=== PATIENT | female | born 1975 | race Caucasian/White ===

== ENCOUNTER 2022-07-15 09:34 | Outpatient (CLI) | payer OTHER, SELFPAY ==
--- NOTE | ~2022-07-15 | MR_ITS ---
EXAMINATION: MR cervical spine wo con DATE: 07/15/2022 11:06 INDICATION: 6 months of neck pain TECHNIQUE: Magnetic resonance imaging (MRI) of the cervical spine was performed without intravenous c ontrast. Sequences included sagittal T2-weighted FSE, sagittal T2-weighted FS FSE, sagittal T1-weight ed FSE, axial MERGE and axial T2-weighted FSE. COMPARISON: None FINDINGS: Straightening of the normal cervical lordosis. Vertebral body heights are normal. Bone marrow signa l intensity is normal. Moderate to severe disc height loss with degenerative endplate osteophytes at C6-C7. Mild disc height loss at C3-C4. Cord signal intensity is normal. Cervical soft tissues are unr emarkable. The following disc levels are specifically discussed: C2-C3: The disc does not extend beyond the endplate margin. There is no uncovertebral joint osteoarth ritis. There is mild bilateral facet joint osteoarthritis. There is no neural foraminal stenosis. The re is no central canal stenosis. C3-C4: Negligible disc bulge. There is mild left uncovertebral joint osteoarthritis. There is minimal right and mild left facet joint osteoarthritis. There is minimal left neural foraminal stenosis. The re is no central canal stenosis. C4-C5: The disc does not extend beyond the endplate margin. There is no uncovertebral joint osteoarth ritis. There is minimal bilateral facet joint osteoarthritis. There is no neural foraminal stenosis. There is no central canal stenosis. C5-C6: The disc does not extend beyond the endplate margin. There is mild right uncovertebral joint o steoarthritis. There is minimal left and no right facet joint osteoarthritis. There is no neural fora alli stenosis. There is no central canal stenosis. C6-C7: Posterior disc ossified complexes with annular fissure and small left central to foraminal zon e disc extrusion with disc material extending up to 4 mm caudal to the level of the superior endplate of C7 at the level of the lateral recess. There is moderate right and severe left uncovertebral join t osteoarthritis. There is mild bilateral facet joint osteoarthritis. There is mild right and moderat e left neural foraminal stenosis. There is mild to moderate central canal stenosis measuring 9 mm AP in the mid sagittal plane. C7-T1: Small central disc protrusion. There is no uncovertebral joint osteoarthritis. There is mild b ilateral facet joint osteoarthritis. There is no neural foraminal stenosis. There is mild central can al stenosis. IMPRESSION: 1. Moderate to severe spondylosis at C6-C7. Otherwise mild cervical spondylosis. Reviewed, dictated and finalized at location A. SCALER IMPRESSION: 1. Moderate to severe spondylosis at C6-C7. Otherwise mild cervical spondylosis .
== END 2022-07-15 09:35 | disposition home or self-care (01) ==
LOC: CHSIMG 09:39
PROVIDERS: PCP Physician Assistant; Visit Provider Physician Assistant
DX: M54.2 Cervicalgia (principal)
CPT/HCPCS: 72141

== ENCOUNTER 2023-09-19 10:32 | Outpatient (CLI) | payer OTHER, SELFPAY ==
--- NOTE | ~2023-09-19 | XR_ITS ---
Cervical Spine: AP, lateral, open-mouth views Clinical History: Pain COMPARISON: 06/26/2022 Findings: The normal lordotic curve is maintained. The vertebral bodies and posterior elements appea r intact. Moderate degenerative disc change noted at C6-C7. Pre-vertebral soft tissues are unremarkab le. Impression: No acute abnormality. No change from prior exam. Degenerative disc changes C6-C7. Reviewed, dictated and finalized at location . ER ELECTRONIC SCALE Impression: No acute abnormality. No change from prior exam. Degenerative disc changes C6-C7.
--- NOTE | ~2023-09-19 | XR_ITS ---
Left Shoulder Technique: AP and scapular Y views were obtained. Clinical History: Pain Findings: No fracture or dislocation is seen. Osseous alignment is anatomic. The glenohumeral and acr omioclavicular joint spaces are preserved. Soft tissues are unremarkable. Impression: Unremarkable left shoulder radiographs. Reviewed, dictated and finalized at [facility]. LE COORDINATOR Impression: Unremarkable left shoulder radiographs.
== END 2023-09-19 10:33 | disposition home or self-care (01) ==
LOC: CHSIMG 10:34
PROVIDERS: PCP Family Medicine; Visit Provider Registered Nurse
DX: M25.512 Pain in left shoulder (principal); M54.2 Cervicalgia
CPT/HCPCS: 72040; 73030

== ENCOUNTER 2023-09-20 08:18 | Outpatient (RCR) | payer OTHER, SELFPAY ==
--- NOTE | 2023-09-20 09:25 | OPREHPOC ---
Outpatient Therapy Plan of Care This is a Multidisciplinary Plan of Care that may contain components documented by all disciplines (PT, OT, and ST.) PT Problem 1 PT Problem #1 Knowledge Deficit PT Goal 1 Goal The patient will be independent in a home exercise program to continue after discharge from formal PT. Target Visit 10 PT Problem 2 PT Problem #2 Pain PT Goal 1 Goal The patient will report no greater than 2/10 left shoulder pain with daily activities. Target Visit 10 PT Problem 3 PT Problem #3 Impaired Range of Motion PT Goal 1 Goal The patient will improve left shoulder abduction AROM to 140 degrees to improve overhead reaching ability. The patient will improve left shoulder external rotation to 70 degrees to improve ability to reach her seat belt. Target Visit 10 PT Problem 4 PT Problem #4 Impaired Strength PT Goal 1 Goal The patient will demonstrate at least 4/5 left shoulder strength in all major muscle groups to improve ability to lift and carry. Target Visit 10 PT Problem 5 PT Problem #5 Impaired Functional Mobil PT Goal 1 Goal The patient will demonstrate less than 25% self perceived disability per the Quick DASH questionnaire. Target Visit 10
--- NOTE | 2023-09-20 09:25 | PTOPEVAL1 ---
Assessment and note entered by Jigna Baum, PT Evaluation Information Assessment Status Evaluation Diagnosis L shoulder pain Subjective Information Robyn Mcleod reports she had a gradual onset of left shoulder that started about a year ago. She did not have a specific injury and feels it may be wear and tear. She reports her pain gradually worsened so she went to the doctor. She had x-rays that were normal and was referred to PT . She notes pain in the upper arm and she can not reach behind her back to scratch/wash, reach for the seat belt, or push up with the left arm from an arm rest. Reported Pain Level Pain Score 3: Self Report Assessment PT Clinical Summary Robyn Mcleod presents with left shoulder pain with an insidious onset that has gradually worsened over the last year. She has difficulty reaching behind her back, reaching for her seat belt, and pushing up from sitting with the left arm. She objectively demonstrates decreased and painful left shoulder AROM, decreased left shoulder strength, poor posture, and positive special tests consistent with shoulder impingement and tendonopathy. She will benefit from skilled PT to address these limitations and improve functional abilities. Plan of Care Interventions Electrical Stimulation,Hot Pack/Cold Pack,Manual Therapy,Patient/Caregiver Educati,Therapeutic Activities,Therapeutic Exercise PT Services Indicated Yes Treatment Frequency and 2 times a week for 10 visits Duration These treatments will address the objective and functional deficits as defined above. The patient will be advanced safely and appropriately in order for the patient to progress towards his/her prior level of function. Additional exercises will be introduced and as well as a comprehensive home exercise program upon discharge, if needed, ?to ensure carryover of functional gains achieved in the clinic. This treatment plan has been reviewed and agreement upon by the patient.
--- NOTE | 2023-10-20 08:47 | OPREHPOC ---
Outpatient Therapy Plan of Care This is a Multidisciplinary Plan of Care that may contain components documented by all disciplines (PT, OT, and ST.) PT Problem 1 PT Problem #1 Knowledge Deficit PT Goal 1 Goal The patient will be independent in a home exercise program to continue after discharge from formal PT. Target Visit 10 Progress Met PT Problem 2 PT Problem #2 Pain PT Goal 1 Goal The patient will report no greater than 2/10 left shoulder pain with daily activities. Target Visit 10 Progress Not Met PT Problem 3 PT Problem #3 Impaired Range of Motion PT Goal 1 Goal The patient will improve left shoulder abduction AROM to 140 degrees to improve overhead reaching ability. -met The patient will improve left shoulder external rotation to 70 degrees to improve ability to reach her seat belt. -not met Target Visit 10 Progress Partially Met PT Problem 4 PT Problem #4 Impaired Strength PT Goal 1 Goal The patient will demonstrate at least 4/5 left shoulder strength in all major muscle groups to improve ability to lift and carry. Target Visit 10 Progress Partially Met PT Problem 5 PT Problem #5 Impaired Functional Mobil PT Goal 1 Goal The patient will demonstrate less than 25% self perceived disability per the Quick DASH questionnaire. Target Visit 10 Progress Not Met
--- NOTE | 2023-10-20 08:47 | PTOPDC ---
Assessment and note entered by Jigna Baum, PT Evaluation Information Assessment Status Discharge Diagnosis L Shoulder Pain Subjective Information Robyn Mcleod reports her left shoulder feels about the same. She continues to have difficulty reaching behind her back to don/doff a bra as well as to hold her puppy in the back seat of her vehicle. She has difficulty with reaching for her seatbelt as well. She notes tenderness in the front of the shoulder and chest. She reports she will have a MRI on 10/22/23. She has had a resolution in the vertigo symptoms she was experiencing for 2 weeks. Reported Pain Level Pain Score 1: Self Report Assessment PT Clinical Summary Robyn Mcleod has completed 10 skilled PT visits for left shoulder pain. She is reporting no overall change in her symptoms since initiating PT. She still has difficulty reaching behind her back, reaching for her seatbelt, and restraining her puppy. She objectively demonstrates improved left shoulder AROM and strength since initiating PT. She does still have deficits and pain with left shoulder abduction and external rotation AROM , decreased left shoulder strength, and positive special tests consistent with rotator cuff pathology. She will be discharged from skilled PT and has a MRI scheduled 10/22/23. Plan of Care PT Services Indicated No
== END 2023-10-20 15:15 | disposition home or self-care (01) ==
LOC: CHSPT 08:18
PROVIDERS: PCP Family Medicine; Visit Provider Registered Nurse
DX: M25.512 Pain in left shoulder (principal)
CPT/HCPCS: 97014; 97110; 97112; 97161; G0283

== ENCOUNTER 2023-10-07 08:49 | Outpatient (CLI) | payer OTHER, SELFPAY ==
--- NOTE | ~2023-10-07 | MMUS_ITS ---
EXAMINATION: MM diagnostic ellie BI w collin, US breast BI complete HISTORY: Palpable bilateral breast masses. History of neurofibromatosis. TECHNIQUE: Additional 3-D tomosynthesis images of breasts were performed and synthetic 2-D images wer e generated. CAD analysis was submitted and interpreted. High resolution complete bilateral breast ul trasound was performed. COMPARISON: No prior studies for comparison. BREAST PARENCHYMAL COMPOSITION: Not dense: There are scattered areas of fibroglandular density. FINDINGS: MAMMOGRAPHIC FINDINGS: There are multiple skin lesions in the left breast. There are no suspicious calcifications or archite ctural distortion. ULTRASOUND: Complete bilateral US of all 4 quadrants of the breasts and retroareolar region was reviewed. Right breast: In the subcutaneous tissues of the right breast near the nipple there is a 9 mm cyst. A t 10:00, 7 cm from the nipple, there is a 8 mm cyst. Left breast: In the subcutaneous tissues of the left breast at 12:00, 3 cm from the nipple there is a n 11 mm cyst. At 1:00, 7 cm from the nipple there is a 2.1 cm cyst. At 1:00, 7 cm from the nipple the re is a solid appearing shadowing 7 mm hypoechoic mass without internal vascularity. This corresponds to the area of palpable concern. At 9:00, 5 cm from the nipple there is a 5 mm cyst.. IMPRESSION: 1. Solid shadowing left breast mass at 1:00, 7 cm from the nipple measuring 7 mm. 2. Ultrasound-guided biopsy recommended. BI-RADS category 4, suspicious findings. Reviewed, dictated and finalized at location A. R GANG SUPERVISOR IMPRESSION: 1. Solid shadowing left breast mass at 1:00, 7 cm from the nipple measuring 7 m m. 2. Ultrasound-guided biopsy recommended. BI-RADS category 4, suspicious findings.
== END 2023-10-07 08:50 | disposition home or self-care (01) ==
LOC: CHSIMG 08:52
PROVIDERS: PCP Family Medicine; Visit Provider Registered Nurse
DX: N63.21 Unspecified lump in the left breast, upper outer quadrant (principal); R92.8 Other abnormal and inconclusive findings on diagnostic imaging of breast
CPT/HCPCS: 76641; 77062; 77066; G0279

== ENCOUNTER 2023-10-22 06:54 | Outpatient (CLI) | payer OTHER, SELFPAY ==
--- NOTE | ~2023-10-22 | MR_ITS ---
EXAMINATION: MR shoulder LT wo con DATE: 10/22/2023 11:16 INDICATION: neck pain/neurofibromatosis/Lt. shoulder pain . TECHNIQUE: Magnetic resonance imaging (MRI) of the left shoulder was performed without intravenous co ntrast. Sequences included axial PD-weighted FS FSE, coronal oblique PD-weighted FS FSE and T2-weight ed FS FSE, and sagittal oblique T2-weighted FS FSE and T1-weighted FSE. COMPARISON: X-ray left shoulder 09/19/2023 FINDINGS: Coracoacromial arch: Moderate lateral downsloping of the type I acromion. Subacromial narrowing to 4 mm. No subcoracoid na rrowing. Rotator cuff: 2 mm partial-thickness articular sided defect in the anterior portion of the supraspinatus tendon isacc r its insertion. Thinning of the superior cuff. Mild abnormal hyperintensity in the musculotendinous junction of the supraspinatus and infraspinatus. Teres minor and subscapularis are intact. Biceps tendon and glenoid labrum: Glenoid labrum and long head of biceps tendon are intact. Fluid: Minimal subacromial subdeltoid fluid. Mild volume glenohumeral joint effusion. Bones/cartilage: The marrow signal is benign and homogenous. Mild AC joint hypertrophy. Mild glenohumeral joint narrow ing. Soft tissues: 9 x 19 mm fluid intensity ovoid lesion in the lateral aspect of the quadrilateral space. IMPRESSION: Moderate osseous outlet compromise, with mild tendinopathy of the superior cuff, mild subacromial/sub deltoid bursitis, and a 2 mm articular sided partial surface tear at the insertion of the supraspinat us tendon. Mild polyarticular osteoarthritis. 9 x 19 mm quadrilateral space cyst may represent a ganglion cyst. No MR findings suggestive of zurdo lateral space syndrome. Correlate for clinical findings of lateral arm paresthesia. Reviewed, dictated and finalized at location K. IMPRESSION: Moderate osseous outlet compromise, with mild tendinopathy of the superior cuff , mild subacromial/subdeltoid bursitis, and a 2 mm articular sided partial surf lolly tear at the insertion of the supraspinatus tendon. Mild polyarticular osteoarthritis. 9 x 19 mm quadrilateral space cyst may represent a ganglion cyst. No MR finding s suggestive of quadrilateral space syndrome. Correlate for clinical findings o f lateral arm paresthesia.
--- NOTE | ~2023-10-22 | MR_ITS ---
MRI of the brain Clinical History: Neck pain, neurofibromatosis Technique: Axial and sagittal T1-weighted images were acquired. These were followed by axial T2-weigh jean pierre, diffusion weighted, gradient, and FLAIR images. Findings: There are minimal hyperintense foci in the periventricular white matter and FLAIR imaging. No acute infarct, intracranial hemorrhage, or mass lesion identified. Ventricles and subarachnoid spaces are unremarkable. Orbits are unremarkable. Paranasal sinuses and m astoid air cells are clear. Major intracranial flow voids are intact. Sagittal midline structures are intact. Probable subtle poorly delineated scalp masses, especially taylor periorly. IMPRESSION: No significant intracranial abnormality. Suspected minimal chronic microvascular ischemic change. Several small scalp masses, poorly delineated. Reviewed, dictated and finalized at location M. IMPRESSION: No significant intracranial abnormality. Suspected minimal chronic microvascula r ischemic change. Several small scalp masses, poorly delineated.
--- NOTE | ~2023-10-22 | MR_ITS ---
EXAMINATION: MR cervical spine wo con DATE: 10/22/2023 11:15 INDICATION: Neurofibromatosis. Neck pain and left shoulder pain. TECHNIQUE: Magnetic resonance imaging (MRI) of the cervical spine was performed without intravenous c ontrast. Sequences included sagittal T2-weighted FSE, sagittal T2-weighted FS FSE, sagittal T1-weight ed FSE, axial MERGE and axial T2-weighted FSE. COMPARISON: MRI dated 07/15/2022 and radiograph dated 09/19/2023 FINDINGS: 1 mm retrolisthesis C6 on C7. Vertebral body heights are normal. Bone marrow signal intensity is nor mal. Moderate to severe disc height loss with degenerative endplate changes at C6-C7. Mild disc heigh t loss at C3-C4. Cord signal intensity is normal. There are several subcentimeter subcutaneous nodule s most evident posterior to the neck which would be consistent with the provided history of neurofibr omatosis. The following disc levels are specifically discussed: C2-C3: The disc does not extend beyond the endplate margin. There is no uncovertebral joint osteoarth ritis. There is mild bilateral facet joint osteoarthritis. There is no neural foraminal stenosis. The re is no central canal stenosis. C3-C4: Disc is minimally bulging. There is mild left uncovertebral joint osteoarthritis. There is mil d right and moderate left facet joint osteoarthritis. There is altered left neural foraminal stenosis . There is no central canal stenosis. C4-C5: Disc is minimally bulging. There is no uncovertebral joint osteoarthritis. There is minimal bi lateral facet joint osteoarthritis. There is no neural foraminal stenosis. There is no central canal stenosis. C5-C6: The disc does not extend beyond the endplate margin. There is no uncovertebral joint osteoarth ritis. There is minimal left and minimal right facet joint osteoarthritis. There is no neural foramin al stenosis. There is no central canal stenosis. C6-C7: Unchanged posterior disc osteophyte complex with annular fissure and small left paracentral to left foraminal zone disc extrusion with disc material extending up to 4 mm caudal to the level of th e superior endplate of C7.. There is moderate right and severe left uncovertebral joint osteoarthriti s. There is mild bilateral facet joint osteoarthritis. There is mild right and moderate left neural f oraminal stenosis. There is mild to moderate central canal stenosis which continues to measure 9 mm A P in the mid sagittal plane. C7-T1: Small central disc protrusion. There is no uncovertebral joint osteoarthritis. There is mild b ilateral facet joint osteoarthritis. There is no neural foraminal stenosis. There is mild central can al stenosis. IMPRESSION: 1. No significant change in moderate to severe spondylosis at C6-C7 and otherwise mild cervical spond ylosis. Reviewed, dictated and finalized at location A. IMPRESSION: 1. No significant change in moderate to severe spondylosis at C6-C7 and otherwi se mild cervical spondylosis.
== END 2023-10-22 06:55 | disposition home or self-care (01) ==
PROVIDERS: PCP Family Medicine; Visit Provider Registered Nurse
DX: M54.2 Cervicalgia (principal); M43.02 Spondylolysis, cervical region; R22.0 Localized swelling, mass and lump, head; M75.52 Bursitis of left shoulder; S46.812A Strain of other muscles, fascia and tendons at shoulder and upper arm level, left arm, initial encounter; M19.012 Primary osteoarthritis, left shoulder; M25.812 Other specified joint disorders, left shoulder
CPT/HCPCS: 70551; 72141; 73221

== ENCOUNTER 2023-11-08 08:02 | Outpatient (CLI) | payer OTHER, SELFPAY ==
--- NOTE | ~2023-11-08 | MMUS_ITS ---
US breast biopsy LT w image, MM post biopsy diagnostic LT, US breast cyst asp add LT DATE: 11/08/2023 10:05 (accession [id number]), 11/08/2023 15:20 (accession [id number]), 11/07 10:10 (accession [id number]) INDICATION: Solid shadowing left breast mass at 1:00 7 cm from nipple. 2.1 cm cyst at 1:00 7 cm from nipple TECHNIQUE: The bursal procedure, technique and potential complications were discussed with the tana t. The patient voiced understanding and gave oral and written consent. Timeout procedure was performe d. The skin of the left breast was prepared with sterile solution. Sterile drapes were applied. 1% lidoc luis local anesthetic was administered to the skin and underlying subcutaneous tissues. 1% lidocaine with epinephrine was administered to the deeper subcutaneous tissues. A small skin incision was made. A 12-gauge biopsy needle was introduced from a lateral approach into the shadowing lesion at 1:00 7 cm from the nipple with ultrasound guidance and 3 core biopsies were o btained. The lesion collapsed with introduction of the needle, consistent with cystic lesion. An 18-gauge spinal needle was introduced into the 2.1 cm 1:00 cyst and fluid was aspirated. The cyst was completely evacuated. Postbiopsy diagnostic mammogram reveals a biopsy marker in the upper outer quadrant of the left breas t. COMPARISON: 10/07/2023 diagnostic mammogram and complete breast ultrasound IMPRESSION: Ultrasound-guided biopsy of left breast 1:00 lesion 7 cm from nipple Ultrasound guided evacuation of left breast 1:00 cyst Pathology results pending on the left breast 1:00 shadowing lesion Reviewed, dictated and finalized at Location [facility]. Reviewed, dictated and finalized at location B. IMPRESSION: Ultrasound-guided biopsy of left breast 1:00 lesion 7 cm from nippl e Ultrasound guided evacuation of left breast 1:00 cyst Pathology results pending on the left breast 1:00 shadowing lesion IMPRESSION: Ultrasound-guided biopsy of left breast 1:00 lesion 7 cm from nippl e Ultrasound guided evacuation of left breast 1:00 cyst Pathology results pending on the left breast 1:00 shadowing lesion
== END 2023-11-08 08:03 | disposition home or self-care (01) ==
LOC: CHSIMG 08:03
PROVIDERS: PCP Family Medicine; Visit Provider Registered Nurse
DX: N63.21 Unspecified lump in the left breast, upper outer quadrant (principal)
CPT/HCPCS: 19000; 19001; 19083; 77065; 88112; 88173; 88305

== ENCOUNTER 2023-11-15 07:58 | Outpatient (RCR) | payer OTHER, SELFPAY ==
--- NOTE | 2023-11-08 12:02 | PCPTNOTE ---
11/08/23: Pt cancelled today's appointment due to having a biopsy this am. Her initial note had been started prior to her arrival. -Jigna Baum, PT
[2023-11-15 07:05] VITALS: BP_SYST 160
--- NOTE | 2023-11-15 08:15 | OPREHPOC ---
Outpatient Therapy Plan of Care This is a Multidisciplinary Plan of Care that may contain components documented by all disciplines (PT, OT, and ST.) PT Problem 1 PT Problem #1 Knowledge Deficit PT Goal 1 Goal Patient to demonstrate independence with HEP Target Visit 5 PT Problem 2 PT Problem #2 Pain PT Goal 1 Goal 1. Patient to report highest pain at 2/10 2. Patient to report no pain when waking up Target Visit 10 PT Problem 3 PT Problem #3 Impaired Range of Motion PT Goal 1 Goal 1. Patient to improve L shoulder flexion and abduction to 170 deg to return to house hold tasks 2. Patient to improve IR to reach to bra line with no increase in pain for dressing Target Visit 10 PT Problem 4 PT Problem #4 Impaired Strength PT Goal 1 Goal Patient to demonstrate 4+/5 B UE strength to return to lifting objects to complete house hold tasks Target Visit 10 PT Problem 5 PT Problem #5 Impaired Functional Mobil PT Goal 1 Goal 1. Patient to score <10% disability on QuickDash 2. Patient to report ability to put her seat belt on with no increased L shoulder pain Target Visit 10
--- NOTE | 2023-11-15 08:15 | PTOPEVAL1 ---
Assessment and note entered by Pat Rankin DPT Evaluation Information Assessment Status Evaluation Diagnosis L shoulder pain, thoracic outlet syndrome Onset 11/01/23 Subjective Information Patient reports a few years ago pain started into her L shoulder but pain has increased over the last few months. She attended PT in September of 2023 with good improvements. She reports she has now seen a specialist with new x-rays that show signs of thoracic outlet syndrome. She reports occasionally if she does something extreme she will get pain that shoots down her arm. She denies any numbness in her hand. She reports most pain is with reaching behind her back, putting on her seat belt and waking up in the morning are all highest sources of pain. She reports she is on STD currently. RTMD on on 12/02/23. Reported Pain Level Pain Score 1: Self Report Assessment PT Clinical Summary Ms. Mcleod is a 48 year old female who presents to PT with L shoulder pain. She demonstrates decreased L shoulder strength, decreased L shoulder ROM, decreased L GHJ hypomobility and hypomobility of the L 1st rib impairing her ability to reach behind her back, putting on her seat belt and highest pain when waking up in the morning. She would benefit from skilled PT to address impairments and return to PLOF. Plan of Care Interventions Electrical Stimulation,Hot Pack/Cold Pack,Manual Therapy,Mechanical Traction,Neuro Re-education, Patient/Caregiver Educati,Therapeutic Activities, Therapeutic Exercise PT Services Indicated Yes Treatment Frequency and 2x weekly for 10 visits Duration These treatments will address the objective and functional deficits as defined above. The patient will be advanced safely and appropriately in order for the patient to progress towards his/her prior level of function. Additional exercises will be introduced and as well as a comprehensive home exercise program upon discharge, if needed, ?to ensure carryover of functional gains achieved in the clinic. This treatment plan has been reviewed and agreement upon by the patient.
--- NOTE | 2023-12-15 07:43 | OPREHPOC ---
Outpatient Therapy Plan of Care This is a Multidisciplinary Plan of Care that may contain components documented by all disciplines (PT, OT, and ST.) PT Problem 1 PT Problem #1 Knowledge Deficit PT Goal 1 Goal Patient to demonstrate independence with HEP Target Visit 5 Progress Met PT Problem 2 PT Problem #2 Pain PT Goal 1 Goal 1. Patient to report highest pain at 2/10 2. Patient to report no pain when waking up Target Visit 10 Progress Met PT Problem 3 PT Problem #3 Impaired Range of Motion PT Goal 1 Goal 1. Patient to improve L shoulder flexion and abduction to 170 deg to return to house hold tasks . met 2. Patient to improve IR to reach to bra line with no increase in pain for dressing. met Target Visit 10 Progress Partially Met PT Problem 4 PT Problem #4 Impaired Strength PT Goal 1 Goal Patient to demonstrate 4+/5 B UE strength to return to lifting objects to complete house hold tasks Target Visit 10 Progress Partially Met PT Problem 5 PT Problem #5 Impaired Functional Mobil PT Goal 1 Goal 1. Patient to score <10% disability on QuickDash 2. Patient to report ability to put her seat belt on with no increased L shoulder pain Target Visit 10 Progress Met
--- NOTE | 2023-12-15 07:44 | PTOPDC ---
Assessment and note entered by JT File, PT Evaluation Information Assessment Status Discharge Diagnosis L shoulder pain, thoracic outlet syndrome Onset 11/01/23 Subjective Information patient reports she feels Good today. she reports she has no pain. she reports her pain has barely reached a 1/10 this past week at worst. she reports she is able to reach behind her back and run her hand. she reports she has been compliant with her HEP. she reports she has no functional limitations. she reports she is ready to be done with therapy today. she reports she knows all her exercises, and has bands and weights to use at home. Reported Pain Level Pain Score 0: Self Report Assessment PT Clinical Summary mrs. wong presents to skilled PT services for her 10th skilled PT visit. as of this date, she displays improvements in rom, strength, and functional activity performance. she reports 0% functional deficits per the quick DASH. she has met or partially met all goals for skilled PT. she will DC skilled PT today, and continue with HEP independent at home. Plan of Care PT Services Indicated Yes
== END 2023-12-15 08:26 | disposition home or self-care (01) ==
LOC: CHSPT 07:58
DX: S46.002D Unspecified injury of muscle(s) and tendon(s) of the rotator cuff of left shoulder, subsequent encounter (principal)
CPT/HCPCS: 97110; 97140; 97161; 97530

== ENCOUNTER 2024-01-23 06:48 | Outpatient (CLI) | payer OTHER, SELFPAY ==
--- NOTE | ~2024-01-23 | XR_ITS ---
XR chest 2V Ordering provider: Ortiz Salazar, History: 49 years Female with . SHORTNESS OF BREATH UPON EXERTION . Comparison: 03/21/2008 FINDINGS: MEDIASTINUM: The cardiac silhouette is not enlarged. LUNGS: No infiltrates, effusions or pneumothorax. OTHER: No free air under the diaphragm. IMPRESSION: No acute cardiopulmonary pathology. Reviewed, dictated and finalized at location A.
--- NOTE | 2024-01-23 07:17 | ECG_ITS ---
Test Date: 2024-01-23 07:32:26 Measurements Intervals Alva Rate: 76 P: 57 WY: 133 QRS: 55 QRSD: 89 T: 55 QT: 343 QTc: 387 Interpretive Statements SINUS RHYTHM No previous ECG available for comparison Electronically Signed On 01-24-2024 11:38:10 CDT by Max Veloz M.D.
== END 2024-01-23 06:49 | disposition home or self-care (01) ==
LOC: CHSIMG 06:50
PROVIDERS: PCP Family Medicine; Visit Provider Nurse Practitioner
DX: R06.02 Shortness of breath (principal)
CPT/HCPCS: 71046; 93005

== ENCOUNTER 2025-06-05 10:19 | Outpatient (CLI) | payer MEDICAID, OTHER, SELFPAY ==
--- NOTE | ~2025-06-05 | US_ITS ---
l LIMITED ABDOMINAL ULTRASOUND INDICATION: Elevated LFTs COMPARISON: None. FINDINGS: Liver: The contours appear to be subtly lobulated. There is normal directional flow in the portal vein. Common bile duct: Normal in size. Gallbladder: The gallbladder wall is normal in thickness. No stones or sludge were seen. Guerra's sign: Negative Right kidney: Right kidney appears normal on the images provided. Imaged portions of the pancreas appear normal. IMPRESSION: Subtle nodular contour of the liver, suspicious for cirrhosis. Reviewed, dictated and finalized at location A.
== END 2025-06-05 10:20 | disposition home or self-care (01) ==
PROVIDERS: PCP Family Medicine; Visit Provider Registered Nurse
DX: R79.89 Other specified abnormal findings of blood chemistry (principal); R93.2 Abnormal findings on diagnostic imaging of liver and biliary tract
CPT/HCPCS: 76705

== ENCOUNTER 2025-06-10 12:33 | Outpatient (CLI) | payer OTHER, SELFPAY ==
--- NOTE | ~2025-06-10 | MM_ITS ---
EXAMINATION: MM screening ellie BI w collin HISTORY: Screening TECHNIQUE: Craniocaudal and mediolateral oblique 3-D tomosynthesis images were obtained and synthetic 2-D images were generated. CAD analysis was submitted and interpreted. COMPARISON: 10/07/2023. BREAST PARENCHYMAL COMPOSITION: There are scattered areas of fibroglandular density. FINDINGS: There is no evidence of suspicious mass, calcification, or architectural distortion to suggest malignancy in either breast. IMPRESSION: 1. No mammographic evidence of malignancy. 2. Recommend routine screening mammography in one year. BI-RADS Category 1: Negative Reviewed, dictated and finalized at location B. ANICAL ENGINEERING INTERN
--- OUTSIDE RECORDS SUMMARY | 2025-06-10 13:44 | XMS_ITS | Clinical Summary ---
Author Organization [facility] Address [facility] [place] [address] Care Team Providers Care Clam Sorter Name Role Phone Rodrigo Jang NP Primary Care Provi jelly Allergies No known active allergies Medications meclizine (ANTIVERT) 12.5 MG tablet Take 1 tablet (12.5 mg total) by mouth 3 (three) times daily as needed. 10/10/2023 Active Active Problems Problem Noted Date Diagnosed Date Tendinopathy of left rotator cuff 11/29/2023 Subacromial impingement of left shoulder 024 Family History Medical History Relation Comments Cancer Father No Known Problems Mother Relation Status Comments Father Mother Alive Social History Tobacco Use Types Packs/Day Years Used Date Smoking Tobacco: Never Smokeless Tobacco: Never Tobacco Cessation:Counseling Given: Not Answered Alcohol Use Standard Drinks/Week Comments Yes 0 (1 standard drink = 0.6 oz pur e alcohol) occasionally Comments Unknown Sex and Gender Information Value Date Recorded Sex Assigned at Not on file Legal Sex Female 8:21 PM CDT Gender Identity Not on file Sexual Orientation Not on file Last Filed Vital Signs Vital Sign Reading Time Taken Comments Blood Pressure 130/109 10/14/2015 3:02 PM DOCUMENT MANAGEMENT ANALYST Pulse 81 10/14/2015 3:02 PM DOCUMENT MANAGEMENT ANALYST Temperature - - Respiratory Rate - - Oxygen Saturation - - Inhaled Oxygen Concentration - - Weight 71.2 kg (157 lb) 12/27/2023 9:26 AM CDT Height 166.4 cm (5' 5.5) 12/27/2023 9:26 AM CDT Body Mass Index 25.73 12/27/2023 9:26 AM CDT Plan of Treatment Health Maintenance Due Date Last Done Comments Cervical Cancer Screening Pap Smear (Age 30 to 64) Every 3 Years 1974 Colorectal Cancer Screening Colonoscopy (10 Years) 1974 Annual Physical 1977 Hepatitis C 01/05/1992 DTaP, Tdap and Td Vaccines (1 - Tdap) 1993 Hepatitis B Vaccines (1 of 3 - 19+ 3-dose series) 1993 Cervical Cancer Screening Pap with HPV Testing (Age 30 to 64) Every 5 Years 01/05/2004 Cervical Cancer Screening with HPV 01/05/2004 Mammogram Screening 2014 Pneumococcal Vaccine: 50+ Years (1 of 1 - PCV) 01/05/2024 Zoster Vaccines (1 of 2) 01/05/2024 COVID-19 Vaccine ( - season) 2025 04/17/2022, 01/15/2022, 01/11/2022, Additional history exists Influenza Adult (#1) 2025 Hepatitis A Vaccines Aged Out No long er eligible based on patient's age to complete this topic Meningococcal B Vaccine Aged Out No l onger eligible based on patient's age to complete this topic Meningococcal Vaccine Aged Out No krishan castro eligible based on patient's age to complete this topic RSV Immunizations Under 20 Months Aged Out No longer eligible based on patient's age to complete this topic Care Teams Clam Sorter Relationship Specialty Start Date End Date Rodrigo Jang NP [address] [place] [phone] PCP - General Nurse Practitioner Family 10/27/23
--- OUTSIDE RECORDS SUMMARY | 2025-06-10 13:44 | XMS_ITS | Encounter Summary ---
Author Organization [facility] Address [facility] [place] [address] Care Team Providers Care Cafeteria Team Leader Name Role Phone Rodrigo Jang NP Primary Care Provi [facility] Encounter Details Date Type Department Care Team (Late st Contact Info) Description 01/13/2019 Abstract SFL CONVERSION [address] [place] [address] , Generic Conversion, Social History Tobacco Use Types Packs/Day Years Used Date Smoking Tobacco: Never Assessed Comments Unknown Sex and Gender Information Value Date Recorded Sex Assigned at Not on file Legal Sex Female 8:21 PM CDT Gender Identity Not on file Sexual Orientation Not on file documented as of this encounter Plan of Treatment Not on file documented as of this encounter Visit Diagnoses Not on filedocumented in this encounter Care Teams Cafeteria Team Leader Relationship Specialty Start Date End Date Rodrigo Jang NP [address] [place] [phone] PCP - General Nurse Practitioner Family 10/27/23 documented as of this encounter
== END 2025-06-10 12:34 | disposition home or self-care (01) ==
LOC: CHSIMG 12:35
PROVIDERS: PCP Family Medicine; Visit Provider Registered Nurse
DX: Z12.31 Encounter for screening mammogram for malignant neoplasm of breast (principal)
CPT/HCPCS: 77063; 77067

== ENCOUNTER 2025-06-17 08:13 | Outpatient (CLI) | payer OTHER, SELFPAY ==
--- NOTE | ~2025-06-17 | CT_ITS ---
EXAM/PROCEDURE: CT abdomen pelvis wo/w con HISTORY: Cirrhosis COMPARISON: None available. TECHNIQUE: IV contrast enhanced CT of the abdomen and pelvis performed. FINDINGS: In the lung bases, 5 x 4 mm nodule in the anterior right lung base image 5 series 4. Lung bases otherwise clear. Heart size normal with no pericardial effusion seen. In the abdomen and pelvis, the bowel gas pattern is nonobstructive with no free air free fluid or pneumatosis. No gross inflamed appendix, or AAA. No gross CT evidence of acute cholecystitis pancreatitis or biliary ductal dilatation. The liver appears normal. Adrenal glands and kidneys appear normal. Stomach is unopacified and nondistended but grossly normal in appearance. Anteflex uterus with IUD in place. Adnexal regions unremarkable. Urinary bladder appears normal for technique. Omentum containing [id number] left inguinal hernia. Several areas of focal skin thickening noted including 2.3 x 1.4 cm soft tissue focus along the right lower quadrant anterior dermal layers and along the left lateral margin or flank area, 3.7 x 1.3 x 2.4 cm soft tissue focus. IMPRESSION: 1. Normal-appearing liver. 2. Several areas of focal skin thickening and/or soft tissue attenuation with small mass is not excluded. Correlate with clinical exam. 3. 5 x 4 mm lung nodule in the right lung base. Correlation with follow-up chest CT recommended. Reviewed, dictated and finalized at location A. ER SPEC IMPRESSION: 1. Normal-appearing liver. 2. Several areas of focal skin thickening and/or soft tissue attenuation with s mall mass is not excluded. Correlate with clinical exam. 3. 5 x 4 mm lung nodule in the right lung base. Correlation with follow-up ches t CT recommended.
--- OUTSIDE RECORDS SUMMARY | 2025-06-17 08:20 | XMS_ITS | Encounter Summary ---
Author Organization [facility] Address [facility] [place] [address] Care Team Providers Care Product Representative Name Role Phone Rodrigo Jang NP Primary Care Provi [facility] Encounter Details Date Type Department Care Team (Late st Contact Info) Description 01/13/2019 Abstract SFL CONVERSION [address] [place] [address] , Generic Conversion, Social History Tobacco Use [...] on filedocumented in this encounter Care Teams Product Representative Relationship Specialty Start Date End Date Rodrigo Jang NP [address] [place] [phone] PCP - General Nurse Practitioner Family 10/27/23 documented as of this encounter
--- OUTSIDE RECORDS SUMMARY | 2025-06-17 08:21 | XMS_ITS | Clinical Summary ---
Author Organization [facility] Address [facility] [place] [address] Care Team Providers Care Customer Account Administrator Name Role Phone Rodrigo Jang NP Primary [...] Comments Blood Pressure 130/109 10/14/2015 3:02 PM MACHINE ROUGH ROUNDER Pulse 81 10/14/2015 3:02 PM MACHINE ROUGH ROUNDER Temperature - - Respiratory Rate - - [...] age to complete this topic Care Teams Customer Account Administrator Relationship Specialty Start Date End Date Rodrigo Jang NP [address] [place] [phone] PCP - General Nurse Practitioner Family 10/27/23
== END 2025-06-17 08:14 | disposition home or self-care (01) ==
LOC: CHSIMG 08:16
PROVIDERS: PCP Family Medicine; Visit Provider Registered Nurse
DX: K74.60 Unspecified cirrhosis of liver (principal); R91.1 Solitary pulmonary nodule
CPT/HCPCS: 74178; Q9967

== ENCOUNTER 2025-06-28 08:32 | Outpatient (CLI) | payer OTHER, SELFPAY ==
--- NOTE | ~2025-06-28 | CT_ITS ---
EXAMINATION:CT diagnostic chest wo con DATE: 06/28/2025 08:48 INDICATION: Lung nodule TECHNIQUE: Computed tomography (CT) of the chest was performed without intravenous contrast. The dose-length product (DLP) was 137.52 mGy-cm. COMPARISON: None. FINDINGS: 5 mm subpleural left upper lobe nodule image 48 series 4. 7 x 4 mm right upper lobe subpleural nodule anteriorly image 71 series 4. No other suspicious nodules or masses. No gross acute intrathoracic process. Heart and great vessels normal size with no bulky lymphadenopathy or significant pericardial effusion. No acute process seen in the visualized upper abdomen bony thorax or extra thoracic soft tissues. IMPRESSION: 1. Bilateral lung nodules as above. Recommend correlation with follow-up chest CT in 3 months. 2. No gross acute intrathoracic process. Reviewed, dictated and finalized at location A. MAKER MACHINE
--- OUTSIDE RECORDS SUMMARY | 2025-06-28 08:37 | XMS_ITS | Encounter Summary ---
Author Organization [facility] Address [facility] [place] [address] Care Team Providers Care Alberene Stone Setter Name Role Phone Rodrigo Jang NP Primary Care Provi [facility] Encounter Details Date Type Department Care Team (Late st Contact Info) Description 01/13/2019 Abstract SFL CONVERSION [address] [place] [address] , Generic Conversion, Social History Tobacco Use [...] on filedocumented in this encounter Care Teams Alberene Stone Setter Relationship Specialty Start Date End Date Rodrigo Jang NP [address] [place] [phone] PCP - General Nurse Practitioner Family 10/27/23 documented as of this encounter
--- OUTSIDE RECORDS SUMMARY | 2025-06-28 08:37 | XMS_ITS | Clinical Summary ---
Author Organization [facility] [place] [facility] Address [facility] [place] [address] Care Team Providers Care Molder Helper Name Role Phone Rodrigo Jang NP Primary [...] Comments Blood Pressure 130/109 10/14/2015 3:02 PM HEAD OPERATOR Pulse 81 10/14/2015 3:02 PM HEAD OPERATOR Temperature - - Respiratory Rate - - [...] age to complete this topic Care Teams Molder Helper Relationship Specialty Start Date End Date Rodrigo Jang NP [address] [place] [phone] PCP - General Nurse Practitioner Family 10/27/23
== END 2025-06-28 08:33 | disposition home or self-care (01) ==
PROVIDERS: PCP Family Medicine; Visit Provider Registered Nurse
DX: J45.909 Unspecified asthma, uncomplicated (principal); R06.02 Shortness of breath; R91.1 Solitary pulmonary nodule
CPT/HCPCS: 71250

== ENCOUNTER 2025-07-03 08:28 | Outpatient (CLI) | payer OTHER, SELFPAY ==
--- OUTSIDE RECORDS SUMMARY | 2025-07-03 08:39 | XMS_ITS | Encounter Summary ---
Author Organization [facility] Address [facility] [place] [address] Care Team Providers Care Literary Writer Name Role Phone Rodrigo Jang NP Primary Care Provi [facility] Encounter Details Date Type Department Care Team (Late st Contact Info) Description 01/13/2019 Abstract SFL CONVERSION [address] [place] [address] , Generic Conversion, Social History Tobacco Use [...] on filedocumented in this encounter Care Teams Literary Writer Relationship Specialty Start Date End Date Rodrigo Jang NP [address] [place] [phone] PCP - General Nurse Practitioner Family 10/27/23 documented as of this encounter
--- OUTSIDE RECORDS SUMMARY | 2025-07-03 08:39 | XMS_ITS | Clinical Summary ---
Author Organization [facility] Address [facility] [place] [address] Care Team Providers Care Highway Administrative Engineer Name Role Phone Rodrigo Jang NP Primary [...] Comments Blood Pressure 130/109 10/14/2015 3:02 PM PLATE SLITTER AND INSPECTOR Pulse 81 10/14/2015 3:02 PM PLATE SLITTER AND INSPECTOR Temperature - - Respiratory Rate - - [...] age to complete this topic Care Teams Highway Administrative Engineer Relationship Specialty Start Date End Date Rodrigo Jang NP [address] [place] [phone] PCP - General Nurse Practitioner Family 10/27/23
--- NOTE | 2025-07-10 20:12 | WPDPFTINT ---
PFT Interpretation DOS: 07/03/2025 REQUESTING: MONTSE Jeff REASON FOR TESTING: Lung nodule PULMONARY FUNCTION TESTS Results are reliable and reproducible. Repeatability of spirometry FEV1 maneuver pre and post bronchodilator is Grade A. Mariangel: Meek Cotton Dust reference equations were used. Spirometry: The pre-bronchodilator FEV1 is 2.28 L, 87%. The pre-bronchodilator FVC is 2.92 L, 91%. The FEV1/FVC ratio is 78%. After bronchodilator, the FEV1 is 2.49 L, 95%, +9. After bronchodilator, the FVC is 3.21 L, 100%predicted, +10. The FEV1/FVC ratio is 78%. Lung volumes: The total lung capacity is 4.83 L, 94%. The functional reserve capacity is 2.69 L, 69%. The residual volume is 1.72 L, 93% . The RV/TLC is 36%. Airway resistance is increased. Diffusion: DLCO is 18.2, 79%. The DLCO/VA is 4.70, 116%. Flow volume loop: The flow volume loop shows a normal tracing. IMPRESSION: Normal spirometry with non-statistically significant response to bronchodilator, normal lung volumes, and normal diffusion. No prior studies to compare. Ebony Flores MD
== END 2025-07-03 08:29 | disposition home or self-care (01) ==
LOC: CHSCARD 08:31
PROVIDERS: PCP Family Medicine; Visit Provider Family Medicine
DX: J45.909 Unspecified asthma, uncomplicated (principal); R06.02 Shortness of breath; R91.1 Solitary pulmonary nodule
CPT/HCPCS: 94060; 94726; 94729

== ENCOUNTER 2025-07-30 12:19 | Outpatient (CLI) | payer OTHER, SELFPAY ==
--- OUTSIDE RECORDS SUMMARY | 2025-07-30 12:24 | XMS_ITS | Encounter Summary ---
Author Organization [facility] Address [facility] [place] [address] Care Team Providers Care Records Analyst Name Role Phone Rodrigo Jang NP Primary Care Provi [facility] Encounter Details Date Type Department Care Team (Late st Contact Info) Description 01/13/2019 Abstract SFL CONVERSION [address] [place] [address] , Generic Conversion, Social History Tobacco Use [...] on filedocumented in this encounter Care Teams Records Analyst Relationship Specialty Start Date End Date Rodrigo Jang NP [address] [place] [phone] PCP - General Nurse Practitioner Family 10/27/23 documented as of this encounter
--- OUTSIDE RECORDS SUMMARY | 2025-07-30 12:24 | XMS_ITS | Clinical Summary ---
Author Organization [facility] Address [facility] [place] [address] Care Team Providers Care Jewelry Bearing Maker Name Role Phone Rodrigo Jang NP Primary [...] Comments Blood Pressure 130/109 10/14/2015 3:02 PM PERSONAL INJURY LEGAL ASSISTANT Pulse 81 10/14/2015 3:02 PM PERSONAL INJURY LEGAL ASSISTANT Temperature - - Respiratory Rate - - [...] age to complete this topic Care Teams Jewelry Bearing Maker Relationship Specialty Start Date End Date Rodrigo Jang NP [address] [place] [phone] PCP - General Nurse Practitioner Family 10/27/23
--- NOTE | 2025-07-30 12:45 | ECHO_ITS ---
Patient Info Name: Robyn Mcleod Age: 50 years : 1975 Gender: Female Ht: 65 in Wt: 167 lbs BSA: 1.88 m2 HR: 67 bpm BP: 160 / 96 mmHg Technical Quality: Excellent Exam Date: 07/30/2025 12:44 PM Patient Status: O Admit Date: 07/30/2025 Exam Type: CA echo doppler color flow Complete two-dimensional, color flow and Doppler transthoracic echocardiogram is performed. Manufacturing Executive: James Lake III Attending Provider: Rodrigo Jang Summary 1. Complete two-dimensional, color flow and Doppler transthoracic echocardiogram is performed. 2. Left ventricular chamber dimension is normal. 3. Left ventricular systolic function is normal, estimated at 60-65. 4. The left ventricular diastolic function is normal. 5. E/e' 7 is not elevated. 6. There is mild mitral valve regurgitation. 7. There is mild to moderate tricuspid valve regurgitation. 8. No pulmonary hypertension, estimated pulmonary arterial systolic pressure is 33 mmHg. Left Ventricle E/e' 7 is not elevated. Left ventricular chamber dimension is normal. Left ventricular systolic function is normal, estimated at 60-65. The left ventricular diastolic function is normal. Right Ventricle Right ventricular chamber dimension is normal. Right ventricular systolic function is normal and with normal TAPSE 2.1 cm. Left Atria Left atrial chamber dimension is normal. Right Atria Right atrial chamber dimension is normal. Aortic Valve The aortic valve is trileaflet. There is no aortic valve stenosis. There is no aortic valve regurgitation. Pulmonic Valve There is no pulmonic regurgitation. Mitral Valve There is no mitral valve stenosis. There is mild mitral valve regurgitation. Tricuspid Valve There is mild to moderate tricuspid valve regurgitation. No pulmonary hypertension, estimated pulmonary arterial systolic pressure is 33 mmHg. Pericardium/Pleural There is no pericardial effusion. Inferior Vena Cava Normal inferior vena cava with >50% collapse upon inspiration consistent with normal right atrial pressure, 5 mmHg. Aorta The aortic root size at the sinus of Valsalva is normal. Left Ventricular Outflow Tract Name Value Normal LVOT 2D LVOT Diameter 2.0 cm LVOT Doppler LVOT Peak Velocity 114 cm/s LVOT Peak Gradient 5 mmHg LVOT Mean Gradient 3 mmHg LVOT VTI 26 cm LVOT VTI/AV VTI Ratio 0.9 LVOT Stroke Volume 85 ml LVOT CO 6.4 l/min LVOT CI 3.4 l/min/m2 Pulmonic Valve Name Value Normal PV Doppler PV Peak Velocity 109 cm/s PV Peak Gradient 5 mmHg PV Mean Gradient 2 mmHg Mitral Valve Name Value Normal MV Doppler MV Peak Gradient 3 mmHg MV Mean Gradient 1 mmHg MV Area (Cont Eq VTI) 3.4 cm2 MV Regurgitation Doppler MR Peak Gradient 100 mmHg MV Diastolic Function MV E Peak Velocity 62 cm/s MV A Peak Velocity 64 cm/s MV E/A 1.0 MV Decel Time (PW) 171 ms MV Annular TDI MV E/e' (Septal) 8.1 MV E/e' (Lateral) 6.7 MV E/e' (Average) 7.4 Tricuspid Valve Name Value Normal TV Regurgitation Doppler TR Peak Velocity 264 cm/s TR Peak Gradient 25 mmHg Estimated PAP/RSVP RA Pressure 5 mmHg <=5 PA Systolic Pressure 33 mmHg <36 RV Systolic Pressure 33 mmHg <36 TV Annular TDI TV Lateral Adore s' Velocity 16.0 cm/s >=9.5 Aortic Valve Name Value Normal AV Doppler AV Peak Velocity 136 cm/s AV Peak Gradient 7 mmHg AV Mean Gradient 4 mmHg AV VTI 30 cm AV Area (Cont Eq VTI) 2.9 cm2 >=3.0 AV Area (Cont Eq Panda) 2.7 cm2 AV DI (Panda) 0.84 AV Regurgitation 2D LVOT Area 3.3 cm2 Ventricles Name Value Normal LV Dimensions 2D/MM IVS Diastolic Thickness (2D) 1.3 cm 0.6-1.0 LVID Diastole (2D) 4.0 cm 3.8-5.2 LVIW Diastolic Thickness (2D) 0.7 cm 0.6-0.9 LVID Systole (2D) 2.7 cm 2.2-3.5 LVOT Diameter 2.0 cm LV Mass (2D Cubed) 126.19 g 67.00-162.00 LV Mass Index (2D Cubed) 67 g/m2 43-95 Relative Wall Thickness (2D) 0.36 <=0.42 LV Fractional Shortening/Ejection Fraction 2D/MM LV Fractional Shortening (2D) 32 % 27-45 LV EF (2D Teichholz) 61 % LV Diastolic Volume (4C MOD) 65 ml LV EF (4C MOD) 71 % LV Diastolic Volume (2C MOD) 54 ml LV EF (2C MOD) 70 % LV Diastolic Volume (BP MOD) 60 ml 46-106 LV Diastolic Volume Index (BP MOD) 32 ml/m2 29-61 LV Systolic Volume (BP MOD) 18 ml 14-42 LV Systolic Volume Index (BP MOD) 9 ml/m2 8-24 LV EF (BP MOD) 71 % 54-74 LV Diastolic Length (4C) 7.7 cm LV Systolic Length (4C) 5.5 cm LV Stroke Volume (4C MOD) 46 ml Atria Name Value Normal LA Dimensions LA Volume (4C A-L) 42 ml LA Volume (BP A-L) 40 ml RA Dimensions RA Systolic Major Calvin Length (4C) 4.8 cm 2.2-2.8 RA Area (4C) 14.0 cm2 <=18.0 Report Signatures
== END 2025-07-30 12:20 | disposition home or self-care (01) ==
PROVIDERS: PCP Family Medicine; Visit Provider Registered Nurse
DX: J45.909 Unspecified asthma, uncomplicated (principal); I34.0 Nonrheumatic mitral (valve) insufficiency; I07.1 Rheumatic tricuspid insufficiency
CPT/HCPCS: 93306